=== PATIENT | female | born 1955 | race Caucasian/White ===

== ENCOUNTER 2024-05-19 17:50 | Emergency (ER) | payer BC, SELFPAY ==
[2024-05-19 17:51] VITALS: BMI 19.6
[2024-05-19 17:57] VITALS: BP 110/94
[2024-05-19 18:00] VITALS: BP 110/94
[2024-05-19 18:12] VITALS: BP 126/77
[2024-05-19] MEDS: NSS 1000 IV (18:22)
[2024-05-19 18:30] LABS: % Basophils 0.9 % (0-2); % Eosinophils 1.4 % (0-6); % Lymphocytes 40.6 % (20.5-51.1); % Monocytes 6.7 % (1.7-9.3); % Neutrophils 50.4 % (42.2-75.2); Absolute Basophils 0.1 10^3/uL (0-0.2); Absolute Eosinophils 0.1 10^3/uL (0-0.7); Absolute Lymphocytes 2.3 10^3/uL (1.2-3.4); Absolute Monocytes 0.4 10^3/uL (0.1-0.6); Absolute Neutrophils 2.8 10^3/uL (1.4-6.5); Hematocrit 41.4 % (37.0-47.0); Hemoglobin 14.9 g/dL (12.0-16.0); Mean Corpuscular Hgb 34.2 pg (27.0-31.0); Mean Platelet Volume 9.7 fL (7.4-10.4); Nucleated Red Blood Cells % 0 %; Platelet Count 286 10^3/uL (130-400); Red Blood Cell Count 4.36 10^6/uL (4.20-5.40); Red Cell Dist. Width 12.2 % (11.5-14.5); White Blood Cell Count 5.5 10^3/uL (4.8-10.8)
[2024-05-19 18:43] LABS: ALT (SGPT) 15 U/L (0-35); AST (SGOT) 24 U/L (14-36); Albumin 4.2 g/dl (3.5-5.0); Alkaline Phosphatase 71 U/L (38-126); Blood Urea Nitrogen 20 mg/dl (7-17); Calcium 9.9 mg/dl (8.4-10.2); Carbon Dioxide 25 mmol/L (22-30); Chloride 104 mmol/L (98-107); Estimated Creatinine Clearance 72 ml/min; Glucose 112 mg/dl (70-99); Magnesium 2.2 mg/dl (1.6-2.3); Potassium 4.5 mmol/L (3.5-5.1); Sodium 138 mmol/L (135-145); Total Bilirubin 0.5 mg/dl (0.2-1.3); Total Protein 6.7 g/dl (6.3-8.2); eGFR > 60.00
[2024-05-19 18:56] LABS: Troponin I < 0.012 ng/ml
[2024-05-19 19:00] VITALS: BP 137/68
[2024-05-19 19:14] LABS: TSH 0.25 uIU/ml (0.47-4.68)
--- NOTE | 2024-05-19 19:14 | ED.GENMED ---
History of Present Illness
General
Chief Complaint: Fainting/Passed Out
Source: patient and spouse
Exam Limitations: none
Time Seen by Provider: 05/19/24 18:04
Nursing documentation reviewed up to this point in time: agreed with
History of Present Illness
History of Present Illness:
69-year-old female presenting to the emergency department today with concerns of an episode where she lost consciousness while eating dinner. She claims that she had a headache and felt off balance throughout the day today walking she claims that
she has had this somewhat chronically and has had this for most of the last few months but has not sought any medical attention for this. Today she went out to dinner felt very lightheaded passed out. This was witnessed by the . He has
been claims that she was unconscious for roughly 2 to 3 minutes. No rhythmic movement. The patient denies any significant chest pain prior did have some mild shortness of breath. She claims that she feels continuously lightheaded and has trouble
getting her words out. She also feels off balance and claims to have some degree of weakness and tingling to the left side including her left arm and left leg. Denies similar symptoms in this regard in the past.
Past History
Social History
Tobacco: Non-smoker
Living: with family
Review of Systems
Review of Systems
Allergies reviewed?: Yes
All Other Systems: ROS reviewed and negative except as documented in HPI and ROS
Phy Exam
Physical Exam
Physical Exam:
GENERAL: Alert , in no apparent distress
EYE: pupils equal and reactive
NECK: Supple, no significant adenopathy.
ENT: o/p clr, mmm.
CARDIAC: Regular rate and rhythm .
LUNGS: Clear breath sounds bilaterally, no acute respiratory distress, no wheezes/rales/rhonchi
ABDOMEN: Soft, without focal tenderness, no r/g, no cvat
NEUROLOGICAL: Alert and oriented, very subtle decrease strength of left arm and left leg though able to move push and pull against resistance. Denies any subjective creased sensation. Normal coordination finger-nose and [id number] no pronator
drift
SKIN: Warm and dry, skin intact.
MUSCULOSKELETAL: No edema, well perfused.
PSYCH: Normal and appropriate interaction.
Course
Orders/Labs/Results
Orders:
Orders
05/19/24 18:08
EKG [Electrocardiogram (*1)] Urgent
Reason for Study: Syncope
EKG- Treatment ONCE
05/19/24 18:19
Complete Blood Count/With Diff Urgent
Comprehensive Metabolic Panel Urgent
Magnesium Urgent
Comment: ADD ON
TSH Urgent
Comment: ADD ON
Troponin I Urgent
05/19/24 18:22
0.9% Sodium Chloride 1000 ml [Nss] 1,000 ml IV BOLUS
05/19/24 18:25
Add On- LAB Urgent
Tests Added?: tsh, mag
CT Head W/o Iv Contrast Urgent
Comment:
Reason For Exam: left sided weakness, RAIN
05/19/24 19:38
Urinalysis Reflex To Culture Urgent
Date Specimen was Collected: 05/19/24
Time Specimen was Collected: 19:35
Urine Microscopic Reflex Cult Urgent
Abnormal Lab Results
05/19/24 05/19/24
18:19 19:38
MCH 34.2 H pg
(27.0-31.0)
BUN 20 H mg/dl
(7-17)
Glucose 112 H mg/dl
(70-99)
TSH 0.25 L uIU/ml
(0.47-4.68)
Urine Ketones 1+ A
(Negative)
Leukocyte Esterase Rfl Trace A
(Negative)
05/19/24 18:19
05/19/24 18:19
Vital Signs
Initial and Last Documented VS:
Initial Vital Signs
Pulse Resp BP Pulse Ox
67 21 110/94 98
05/19/24 17:57 05/19/24 17:57 05/19/24 17:57 05/19/24 17:57
Last Documented Vital Signs
Temp Pulse Resp BP Pulse Ox
98.0 F 65 19 123/65 98
05/19/24 19:40 05/19/24 21:00 05/19/24 21:00 05/19/24 20:00 05/19/24 19:00
MDM/Problems Addressed
MDM/Problems Addressed:
69-year-old female presenting to the emergency department today with concerns of syncopal episode prior to arrival. Preceded by lightheadedness no chest pain still with ongoing fatigue weakness some difficult as well as she claims to have left
weakness though very subtle and hard to differentiate on exam. Here workup with CT scan that is nonemergent. Labs unremarkable patient claims symptoms fully resolved after receiving fluids here. Vital signs normal throughout stay denies any
ongoing symptoms walk with steady gait. It was explained that it is unclear what her initial recall was from unclear why she is ongoing headache that she felt some weakness to her left arm that was very difficult to appreciate on exam. She was
given the option of being observed overnight to ensure there is no recurrence or worsening of symptoms. She claims that she would like to follow-up as an outpatient. Strict return precautions were discussed.
*Critical Care Note
Total Time (30-74mins, 75-104mins- exclusive of procedures): Not Applicable
ED Attending Note
-
Portions of this chart may have been created with voice recognition software.� Occasional wrong word or��sound alike� substitutions may have occurred due to the inherent limitations of voice recognition software.
Discharge Plan
Departure
Patient Disposition: Home (Routine Discharge)
Date of Disposition: 05/19/24
Time of Disposition: 21:16
Patient with high blood pressure during this ER visit?: No
Condition: Good
Covid-19: Not Applicable
Discharge Problem:
Syncope, Headache
Instructions: Syncope (Fainting) (DC)
Prescriptions:
No Action
ascorbic acid (vitamin C) [Vitamin C] 1,000 mg Tablet
1 g PO DAILY
vitamin A 2,400 mcg Capsule
2,400 mcg PO DAILY
valacyclovir 500 mg Tablet
1,000 mg PO BID
Referrals:
Jordy Neri MD [Active] - Follow up in 5-7 days
Leona Mcmillan DO [Family Provider] -
Activity Restrictions/Additional Instructions:
You came to the emergency department today after syncopal episode. Here he had a reassuring assessment normal head CT lab and urinalysis. You may have been somewhat dehydrated your symptoms did improve here. Please follow close with your primary
care doctor and neurology. Immediately return for any worsening, new or concerning symptoms.
Interventions
Interventions:
*Risk Screen - Suicide Last Done: 05/19/24 18:01
*General Assessment Last Done: 05/19/24 17:59
*Neglect/Abuse Screening Last Done: 05/19/24 18:01
ED- Fall Risk Assessment Last Done: 05/19/24 17:56
*ED COVID-19 Vaccine History Last Done: 05/19/24 17:59
*Nursing Disposition Last Done: 05/19/24 21:32
ED- Cardiac Assessment Last Done: 05/19/24 19:44
ED- Neurological Assessment Last Done: 05/19/24 19:44
Discharge Date and Time
Discharge Date/Time: 05/19/24 21:32
Print Language: WALLISIAN
[2024-05-19 19:40] VITALS: BP 139/83
[2024-05-19 19:52] LABS: Urine Albumin Negative (Neg - Trace); Urine Bilirubin Negative (Negative); Urine Character Clear (Clear); Urine Color Yellow; Urine Glucose Negative (Negative); Urine Ketone 1+ (Negative); Urine Leukocyte Trace (Negative); Urine Nitrite Negative (Negative); Urine Occult Blood Negative (Negative); Urine Specific Gravity 1.015 (<1.030); Urine Urobilinogen Negative (Neg - 1+)
[2024-05-19 20:00] VITALS: BP 123/65
[2024-05-19 20:08] LABS: Urine Red Blood Cell 0-2 /HPF (0-2); Urine Squamous Cell 0-2 /LPF (Few); Urine White Cell 0-2 /HPF (0-5)
--- NOTE | 2024-05-19 20:46 | EDRN ---
Pt called and says she feels good and wants to go home. Pt removed herself from all monitoring equipment. Kaykay MUHAMMAD informed
== END 2024-05-19 21:32 | disposition home or self-care (01) ==
LOC: EMR 17:50
PROVIDERS: Physician Assistant; EMERGENCY PHYSICIAN Emergency Medicine; FAMILY PHYSICIAN Family Medicine
DX: R55 Syncope and collapse (principal); R51.9 Headache, unspecified
CPT/HCPCS: 99284; 96360; 70450; 80053; 81003; 81015; 83735; 84443; 84484; 85025